=== PATIENT | male | born 1960 | race Two or more races ===

== ENCOUNTER 2024-11-09 04:55 | Emergency (ER) | payer MEDICAID, SELFPAY ==
--- NOTE | 2024-11-09 | XR_ITS ---
MRI abdomen, without contrast. MRCP Date and time of exam: November 09, 2024 0948 hours INDICATIONS: Worsening right upper abdomen epigastric pain nausea vomiting this week, gallbladder sonogram this a.m. cholelithiasis, thickened gallbladder wall Technique: Multiple axial and coronal images of the abdomen have been obtained with the Siemens 1.5T MRI scanner. Images obtained included T1 weighted transverse images, T2-weighted transverse images, T2-weighted transverse images fat-suppressed, T2 weighted haste fat suppressed transverse images, T1 weighted images, in and out of phase images, T2-weighted coronal images, breath hold, T2 weighted haze coronal images as well as T2 weighted coronal thick slab images, MRCP. Findings: No focal liver lesions Gallstones Gallbladder wall is mildly thickened 4 mm Common hepatic duct 6 mm common bile duct 4 mm no common hepatic or common bile duct stones Negative for pancreatitis Spleen is not enlarged No hydronephrosis No ascites Aorta normal size IMPRESSION: Cholelithiasis Borderline thickening gallbladder wall, clinical correlation advised, consider HIDA scan follow-up No common hepatic or common bile duct stones
[2024-11-09 04:57] VITALS: BMI 31.7
[2024-11-09 05:14] VITALS: BP 147/86; PULSE 78; RESP 17; TEMP 37.1; O2SAT 98
--- NOTE | 2024-11-09 05:27 | XR_ITS ---
Examination: Abdomen sonogram, Limited Date and time of exam: November 09, 2024 at 0537 hours INDICATIONS: Worsening abdominal pain beginning yesterday Technique: Real-time laird scale transabdominal sonographic images of the upper abdomen obtained. Findings: Cholelithiasis Gallbladder wall 0.49 cm Common bile duct 0.5 cm Pancreatic and 3.1 cm Liver 16.1 cm fatty infiltration no focal liver lesions Normal hepatopedal portal venous flow Patent IVC IMPRESSION: Cholelithiasis, cholecystitis, consider HIDA scan or MRCP follow-up
--- NOTE | 2024-11-09 05:27 | XR_ITS ---
Examination: PA chest single view TECHNIQUE: Upright PA chest single view Date and time :November 09, 2024 0558 hours INDICATIONS: Chest pain shortness of breath 9 2 days ago FINDINGS: Normal heart size. Lungs are clear. The osseous structures are intact IMPRESSION: No active disease.
--- NOTE | 2024-11-09 05:27 | EKG_ITS ---
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
--- NOTE | 2024-11-09 05:28 | PD.EDRME ---
Rapid Medical Screening Exam [facility] Arrival date/time: 11/09/24 04:55 64M with history of DM and HTN presents to ED with 1 week of worsening RUQ/epigastric pain and N/V. Patient went to PCP who did a stool test (pending results) and was given an H.pylori ABX combo (patient is on day 2). No release with those meds. Patient drinks alcohol regularly. Chief Complaint: Abdominal Pain Vital signs: Vital Signs Temperature 98.8 F 11/09/24 05:14 Pulse Rate 78 11/09/24 05:14 Respiratory Rate 17 11/09/24 05:14 Blood Pressure 147/86 H 11/09/24 05:14 Pulse Oximetry (%) 98 11/09/24 05:14 Oxygen Delivery Method Room Air 11/09/24 05:14
[2024-11-09 05:52] LABS: Basophils # (Auto) 0.1 Thou/mm3 (0.0-0.2); Basophils % (Auto) 1 % (0-2.5); Eosinophils # (Auto) 0.1 Thou/mm3 (0.0-0.5); Eosinophils % (Auto) 1 % (0-10); Hematocrit 47.7 % (41.0-53.0); Hemoglobin 16.3 g/dL (13.5-16.0); Immature Granulocytes Auto 0.05 Thou/mm3 (0.00-0.00); Lymphocytes # (Auto) 1.2 Thou/mm3 (1.0-4.8); Lymphocytes % (Auto) 12 % (10-50); Mean Corpuscular HGB Conc 34.2 g/dl (31.0-37.0); Mean Corpuscular Hemoglobin 29.6 pg (25.0-35.0); Mean Corpuscular Volume 87 fL (80-100); Monocytes # (Auto) 0.5 Thou/mm3 (0.0-0.8); Monocytes % (Auto) 5 % (0-12); Neutrophils # (Auto) 8.5 Thou/mm3 (1.8-7.7); Neutrophils % (Auto) 81 % (37-80); Nucleated Red Blood Cell # 0.00 Thou/mm3 (0.00-0.00); Nucleated Red Blood Cell % 0 /100 WBC (0); Platelet Count 274 Thou/mm3 (140-440); RDW Standard Deviation 37.8 fL (35.1-43.9); Red Blood Count 5.50 Miln/mm3 (4.50-5.90); White Blood Count 10.4 Thou/mm3 (3.8-10.6)
[2024-11-09 06:14] LABS: Alanine Aminotransferase 51 U/L (10-49); Albumin, Serum 5.1 gm/dL (3.4-4.8); Albumin/Globulin Ratio 1.8 (1.2-2.2); Alcohol, Blood Medical < 3.0 mg/dL (0-10.0); Alkaline Phosphatase 61 U/L (46-116); Anion Gap 12 (7-16); Aspartate Amino Transferase 32 U/L (0-34); BUN/Creatinine Ratio 14 Ratio (12-20); Bilirubin,Total 0.7 mg/dL (0.3-1.2); Blood Urea Nitrogen 17 mg/dL (9-23); Calcium 10.0 mg/dL (8.3-10.6); Calcium (Corrected) 10.0 mg/dL (8.5-10.1); Carbon Dioxide 23.6 mMol/L (20.0-31.0); Chloride 102 mMol/L (98-107); Creatinine (Component) 1.2 mg/dL (0.6-1.3); Estimated Creatinine Clearance 61.6 mL/min (>60); Globulin 2.8 gm/dL (2.3-3.5); Glucose 237 mg/dL (74-106); Lipase 67 U/L (12-53); Osmolality,Calculated 285 (275-295); Potassium 4.2 mMol/L (3.4-5.1); Sodium 138 mMol/L (136-145); Total Protein 7.9 gm/dL (5.7-8.2); Troponin I < 0.002 ng/mL (0.0-0.045); eGFR > 60 See Note
--- NOTE | 2024-11-09 06:52 | PRELIM_ITS ---
Ultrasound Abdomen. November 09, 2024 0537 hours Clinical history: RUQ/epigastric pain Technique: Grayscale and color flow images of the abdomen are provided. Hepatic and portal veins were also imaged with color flow images. No prior study is available for comparison. Findings: The liver is hyperechoic with heterogeneous echo texture. No intrahepatic biliary ductal dilatation. Debris and stones are seen within the gallbladder. Gallbladder wall thickening up to 4.9 mm. The common bile duct is normal in caliber at 5 mm. The pancreas is unremarkable to the extent visualized. The inferior vena cava to the extent visualized is within normal limits. Impression: Cholelithiasis with evidence of acute cholecystitis. Suggest follow-up with HIDA scan, if clinically indicated. Other findings as described above. Report Electronically Signed By: Mile El 11/09/2024 6:50:22 AM [EST]
[2024-11-09 07:22] VITALS: BP 146/88; PULSE 71; RESP 18; TEMP 36.9; O2SAT 98
--- NOTE | 2024-11-09 07:33 | PD.EDABDPN ---
ED Abdominal Pain RME/HPI General Chief Complaint: Abdominal Pain Stated complaint: ABD PAIN Time seen by provider: 11/09/24 07:17 Arrival date/time: 11/09/24 04:55 Limitations: no limitations RME / HPI RME / HPI narrative: 11/09/24 04:55 64M with history of DM and HTN presents to ED with 1 week of worsening RUQ/epigastric pain and N/V. Patient went to PCP who did a stool test (pending results) and was given an H.pylori ABX combo (patient is on day 2). No release with those meds. Patient drinks alcohol regularly. DR. DEVINE MAIN ED EVALUATION: 64 year old male presents to the ED for evaluation of abdominal pain today. Reports his pain began intermittently 1 month ago rated as mild in severity. Consulted with his PCP 1 week ago, diagnosed with H. Pylori and started on antibiotic treatment. States he began medications yesterday and at 02:00 AM today the pain became severe. Located to epigastric region without radiation. Accompanied by nausea and vomiting. No other associated symptoms reported. Denies fevers, chills, chest pain, shortness of breath, change in bowel habits, or urinary symptoms. Patient admits to drinking alcohol and last drank 6 beers 5 days ago. Related Data Home Medications ?Medication ?Instructions ?Recorded ?Confirmed amlodipine 10 mg tablet 10 mg PO QDAY 07/13/18 04/22/22 fenofibrate 160 mg tablet 135 mg PO QDAY 07/13/18 04/22/22 empagliflozin 10 mg tablet 10 mg PO QDAY 04/22/22 04/22/22 (Jardiance) glipizide 5 mg tablet 5 mg PO QDAY 04/22/22 04/22/22 lisinopril 20 1 tab PO QDAY 04/22/22 04/22/22 mg-hydrochlorothiazide 25 mg tablet sitagliptin phos 100 mg-metformin 1 tab PO QPM 04/22/22 04/22/22 ER 1,000 mg tablet,extend rel 24h mp (Janumet XR) Previous Rx's ?Medication ?Instructions ?Recorded ibuprofen 800 mg tablet 800 mg PO TID PRN pain #30 tabs 07/13/18 meloxicam 7.5 mg tablet 7.5 mg PO QDAY #10 tabs 09/19/23 famotidine 20 mg tablet (Pepcid) 20 mg PO BID allergic reaction #20 11/09/24 tabs ondansetron HCl 4 mg tablet 4 mg PO Q6H PRN nausea and 11/09/24 vomiting #14 tabs Allergies Allergy/AdvReac Type Severity Reaction Status Date / Time No Known Allergies Allergy Verified 04/22/22 16:30 Review of Systems Review of Systems Systems Reviewed: All systems reviewed, normal except as documented Past Medical History Past Medical History CARDIAC: Positive Hypertension ENDOCRINE: Positive Diabetes Mellitus Type 2 Social History SMOKING STATUS: Never smoker ED Exam General Limitations: Present no limitations General appearance: Present alert and in no apparent distress Head Head exam: Present atraumatic, normocephalic and normal inspection Eye Eye exam: Present normal appearance, PERRL and EOMI ENT ENT exam: Present normal exam, normal oropharynx and mucous membranes moist Neck Neck exam: Present normal inspection, full ROM and trachea midline Chest Chest inspection: Present normal inspection and symmetric chest wall rise Respiratory Respiratory exam: Present normal lung sounds bilaterally Cardiovascular Cardiovascular exam: Present regular rate, normal rhythm and normal heart sounds Abdominal Exam Abdominal exam: Present soft, tenderness (1-2+ epigastric tenderness ) and normal bowel sounds; Absent distention, guarding or rebound Extremities Exam Extremities exam: Present normal inspection and full ROM Back Exam Back exam: Present normal inspection and full ROM Neurological Exam Neurological exam: Present alert, oriented X3 and CN II-XII intact Psychiatric Psychiatric exam: Present normal affect and normal mood Skin Skin exam: Present warm, dry, intact and normal color Course Quality Measures none Orders Category Date Time Status Nail Polish Brush Machine Feeder STAT Care 11/09/24 07:50 Active Continuous Pulse Oximetry STAT Care 11/09/24 07:50 Completed EKG (ED ONLY) *Do not use* NOW Care 11/09/24 05:27 Completed Insert IV NOW Care 11/09/24 05:27 Active Insert IV STAT Care 11/09/24 07:50 Active MRI Screening NOW Care 11/09/24 07:57 Active NPO STAT Care 11/09/24 07:50 Active EKG (ED Only) Stat Exams 11/09/24 05:27 Ordered MR MRCP Stat Exams 11/09/24 Completed US gall bladder Stat Exams 11/09/24 05:27 Completed XR chest 1V portable Stat Exams 11/09/24 05:27 Completed Alcohol, Blood Medical Stat Lab 11/09/24 05:35 Completed CBC Stat Lab 11/09/24 05:35 Completed CBC Stat Lab 11/09/24 08:43 Completed Comprehensive Metabolic Panel Stat Lab 11/09/24 05:35 Completed Lipase Stat Lab 11/09/24 05:35 Completed Magnesium Stat Lab 11/09/24 08:43 Completed Prothrombin Time with INR Stat Lab 11/09/24 08:43 Completed Troponin I Stat Lab 11/09/24 05:35 Completed Urinalysis Stat Lab 11/09/24 08:30 Completed Famotidine Inj [Pepcid Inj] Med 11/09/24 07:50 Discontinued 20 mg IVP X1 ONE Morphine Inj Med 11/09/24 05:27 Discontinued 5 mg IVP X1 ONE Ondansetron Inj [Zofran Inj] Med 11/09/24 05:27 Discontinued 4 mg IVP X1 ONE Pantoprazole Inj [Protonix Inj] Med 11/09/24 05:27 Discontinued 40 mg IVP X1 ONE Sodium Chloride 0.9% 1000 ml [Ns] 1,000 ml Med 11/09/24 07:50 Discontinued IV 999 mls/hr Vital Signs Vital signs: Vital Signs Temperature 98.8 F 11/09/24 05:14 Pulse Rate 78 11/09/24 05:14 Respiratory Rate 17 11/09/24 05:14 Blood Pressure 147/86 H 11/09/24 05:14 Pulse Oximetry (%) 98 11/09/24 05:14 Oxygen Delivery Method Room Air 11/09/24 05:14 Pulse ox is 98% on room air which is adequate. Abdominal Pain MDM MDM Narrative MDM Narrative:: Holly Hand am scribing for and in the presence of Dr. Devine. We reviewed all the results, analysis, and treatment plans. Patient is amenable to discharge. Strict return precautions were outlined. Patient was discharged in stable condition. Patient data External records reviewed:: [facility] previous records (I reviewed ED visit on 09/19/2023 ) Clinical information provided by:: patient Social determinants that could affect healthcare access:: alcohol use Patient has the following chronic illnesses:: HTN, DM Recently dx with H. Pylori How is presenting disease/condition affected by chronic disease/condition?: exacerbated by Evaluation data The following diagnostics were reviewed and interpreted by me:: lab results, radiology exam(s) and EKG tracing(s) (11/09/2024 @ 05:27 AM. Sinus rhythm, rate 66, no acute ischemic changes, no STEMI. ) Lab and/or radiology exams considered but not ordered:: None Interpretation Summary: Ordering Physician: Daniel Luo PA-C Date of Service: 11/09/24 Procedure(s): US gall bladder Accession Number(s): [id number] cc: Ed Tolbert PA-C; Kang Mcdonald MD; Daniel Luo PA-C~ Examination: Abdomen sonogram, Limited Date and time of exam: November 09, 2024 at 0537 hours INDICATIONS: Worsening abdominal pain beginning yesterday Technique: Real-time laird scale transabdominal sonographic images of the upper abdomen obtained. Findings: Cholelithiasis Gallbladder wall 0.49 cm Common bile duct 0.5 cm Pancreatic and 3.1 cm Liver 16.1 cm fatty infiltration no focal liver lesions Normal hepatopedal portal venous flow Patent IVC IMPRESSION: Cholelithiasis, cholecystitis, consider HIDA scan or MRCP follow-up Dictated By: Kang Mcdonald MD Signed By: <Electronically signed by Kang Mcdonald MD in OV>11/09/24 0729 Ordering Physician: Daniel Luo PA-C Date of Service: 11/09/24 Procedure(s): XR chest 1V portable Accession Number(s): [id number] cc: Ed Tolbert PA-C; Kang Mcdonald MD; Daniel Luo PA-C~ Examination: PA chest single view TECHNIQUE: Upright PA chest single view Date and time :November 09, 2024 0558 hours INDICATIONS: Chest pain shortness of breath 9 2 days ago FINDINGS: Normal heart size. Lungs are clear. The osseous structures are intact IMPRESSION: No active disease. Dictated By: Kang Mcdonald MD Signed By: <Electronically signed by Kang Mcdonald MD in OV> 11/09/24 0746 Ordering Physician: Dejan Devine MD Date of Service: 11/09/24 Procedure(s): MR MRCP Accession Number(s): [id number] cc: Dejan Devine MD; Ed Tolbert PA-C; Kang Mcdonald MD~ MRI abdomen, without contrast. MRCP Date and time of exam: November 09, 2024 0948 hours INDICATIONS: Worsening right upper abdomen epigastric pain nausea vomiting this week, gallbladder sonogram this a.m. cholelithiasis, thickened gallbladder wall Technique: Multiple axial and coronal images of the abdomen have been obtained with the Siemens 1.5T MRI scanner. Images obtained included T1 weighted transverse images, T2-weighted transverse images, T2-weighted transverse images fat-suppressed, T2 weighted haste fat suppressed transverse images, T1 weighted images, in and out of phase images, T2-weighted coronal images, breath hold, T2 weighted haze coronal images as well as T2 weighted coronal thick slab images, MRCP. Findings: No focal liver lesions Gallstones Gallbladder wall is mildly thickened 4 mm Common hepatic duct 6 mm common bile duct 4 mm no common hepatic or common bile duct stones Negative for pancreatitis Spleen is not enlarged No hydronephrosis No ascites Aorta normal size IMPRESSION: Cholelithiasis Borderline thickening gallbladder wall, clinical correlation advised, consider HIDA scan follow-up No common hepatic or common bile duct stones Dictated By: Kang Mcdonald MD Signed By: <Electronically signed by Kang Mcdonald MD in OV> 11/09/24 1039 Medications / Prescriptions Medications or Prescriptions considered but not ordered:: None Medication administrations:: Medication Administration History Discontinued Medications Famotidine (Famotidine Inj 10 Mg/Ml Vial 2 Ml) 20 mg IVP X1 ONE Stop: 11/09/24 07:51 Last Admin: 11/09/24 08:10 Dose: 20 mg Documented By: CECY Sodium Chloride (Ns) 1,000 mls @ 999 mls/hr IV .Q1H1M ONE Stop: 11/09/24 08:50 Last Infusion: 11/09/24 09:15 Dose: Infused Documented By: Admin: 11/09/24 08:10 Dose: 999 mls/hr Documented By: CECY Morphine Sulfate (Morphine Sulf Inj 10 Mg/Ml Vial) 5 mg IVP X1 ONE Stop: 11/09/24 05:28 Last Admin: 11/09/24 07:57 Dose: 5 mg Documented By: RAMANA Ondansetron HCl (Ondansetron Inj 2 Mg/Ml Inj 2 Ml) 4 mg IVP X1 ONE; Protocol Stop: 11/09/24 05:28 Last Admin: 11/09/24 07:57 Dose: 4 mg Documented By: RAMANA Pantoprazole Sodium (Pantoprazole Inj 40 Mg Vial) 40 mg IVP X1 ONE Stop: 11/09/24 05:28 Last Admin: 11/09/24 07:55 Dose: 40 mg Documented By: RAMANA See above Consultations Consultation(s) initiated? (list below): Yes Consultation #1 (Physician, Specialty, Details): I spoke with surgeon Dr. Gracia. Discussed patients PMHx, HPI, ED course, exam findings, labs, and radiology results. States patient can be discharged home and follow up with her on an outpatient basis. Diagnosis Differential diagnosis abdominal pain: abdominal pain, gastroenteritis, pancreatitis and other (H. Pylori, gastritis ) Most likely diagnosis given after review of the tests above:: Abdominal pain Cholelithiasis Medication reaction Admission Indicated Admission indicated?: not indicated Admission Request Was there a request for admission?: No Disposition Plan Disposition Plan: Discharge Discharge Attestation Discharge Attestation: The patient and all family members were given an opportunity to ask questions and understood the discharge instructions. Discharge instructions specifically effects, indications for sooner follow up or return to the emergency department, and the expected course of current diagnosis. Patient condition: Stable Discharge Plan Plan Patient Disposition: HOME (Self Care) Prescriptions/Referrals Prescriptions/Med Rec: New ondansetron HCl 4 mg tablet 4 mg PO Q6H MDD 4 PRN (Reason: nausea and vomiting) Qty: 14 0RF famotidine [Pepcid] 20 mg tablet 20 mg PO BID MDD 2 Qty: 20 0RF No Action amlodipine 10 mg Tablet 10 mg PO QDAY fenofibrate 160 mg Tablet 135 mg PO QDAY ibuprofen 800 mg tablet 800 mg PO TID PRN (Reason: pain) Qty: 30 0RF meloxicam 7.5 mg tablet 7.5 mg PO QDAY Qty: 10 0RF lisinopril-hydrochlorothiazide 20-25 mg Tablet 1 tab PO QDAY glipizide 5 mg Tablet 5 mg PO QDAY Janumet XR 100-1,000 mg Tablet, Er Multiphase 24 Hr 1 tab PO QPM Jardiance 10 mg Tablet 10 mg PO QDAY Referrals: Amanda Gracia MD [Physician] - In 1 week Ed Tolbert PA-C [Primary Care Provider] - In 1 week Problem List Clinical Impression: Cholelithiasis, Abdominal pain, Medication reaction Patient/Caregiver Discharge Instructions Education Materials: Abdominal Pain, ED Drug Reaction, Other, ED Gallstones with Biliary Colic Additional Instructions: Follow-up with your primary care doctor in 1-2 days for referral to see surgeon Dr. Gracia. You can return to the emergency department sooner if symptoms worsen or if you notice any new, concerning issues. Print Language: Martiniquais Stand Alone Forms: Deepa Award Info., Patient Portal Info Letter
--- NOTE | 2024-11-09 07:42 | PC.NURSE ---
PATIENT MOVED TO ROOM 1 AT CHANGE OF SHIFT FROM LOBBY. PATIENT WITH COMPLAINT OF EPIGASTRIC PAIN FOR 5 DAYS WORSE TODAY. PATIENT RATES PAIN 6/10. PATIENT STATES HE WENT TO PRIMARY CARE PROVIDER AND WAS GIVEN MEDICATION WITH NO RELIEF. IV ESTABLISHED. CALL LIGHT WITHIN REACH. WILL CONTINUE TO MONITOR.
--- NOTE | 2024-11-09 07:48 | PC.NURSE ---
MEDICATIONS ORDERED BY RME PROVIDER. NOT ADMINISTERED DUE TO PATIENT BEING IN LOBBY.
[2024-11-09] MEDS: ONDANSETRON INJ 2 MG/ML INJ 2 ML 4 MG IVP (07:57)
[2024-11-09] MEDS: MORPHINE SULF INJ 10 MG/ML VIAL 5 MG IVP (07:57)
[2024-11-09] MEDS: FAMOTIDINE INJ 10 MG/ML VIAL 2 ML 20 MG IVP (08:10)
[2024-11-09] MEDS: SODIUM CHLORIDE 0.9% 1000 ML 1,000 ML 999 ML IV (08:10)
[2024-11-09 08:11] VITALS: PULSE 64
[2024-11-09 08:48] LABS: Collection Type, Urine Clean Catch; Squamous Epithelial Cell,Urine 0 /hpf (0-5)
[2024-11-09 08:50] LABS: Basophils # (Auto) 0.0 Thou/mm3 (0.0-0.2); Basophils % (Auto) 0 % (0-2.5); Eosinophils # (Auto) 0.0 Thou/mm3 (0.0-0.5); Eosinophils % (Auto) 0 % (0-10); Hematocrit 44.4 % (41.0-53.0); Hemoglobin 15.4 g/dL (13.5-16.0); Immature Granulocytes Auto 0.04 Thou/mm3 (0.00-0.00); Lymphocytes # (Auto) 0.7 Thou/mm3 (1.0-4.8); Lymphocytes % (Auto) 6 % (10-50); Mean Corpuscular HGB Conc 34.7 g/dl (31.0-37.0); Mean Corpuscular Hemoglobin 30.0 pg (25.0-35.0); Mean Corpuscular Volume 86 fL (80-100); Monocytes # (Auto) 0.5 Thou/mm3 (0.0-0.8); Monocytes % (Auto) 3 % (0-12); Neutrophils # (Auto) 12.2 Thou/mm3 (1.8-7.7); Neutrophils % (Auto) 91 % (37-80); Nucleated Red Blood Cell # 0.00 Thou/mm3 (0.00-0.00); Nucleated Red Blood Cell % 0 /100 WBC (0); Platelet Count 234 Thou/mm3 (140-440); RDW Standard Deviation 37.6 fL (35.1-43.9); Red Blood Count 5.14 Miln/mm3 (4.50-5.90); White Blood Count 13.5 Thou/mm3 (3.8-10.6)
[2024-11-09 09:01] LABS: Bilirubin,Urine Negative (Negative); Blood,Urine Negative (Negative); Clarity,Urine Clear (Clear/Hazy); Color,Urine Lt-Yellow (Lt Yel-Yel); Glucose, Urine 4+ (Negative); Ketones,Urine Negative (Negative); Leukocyte Esterase,Urine Negative (Negative); Nitrite,Urine Negative (Negative); PH,Urine 7.5 (5.0-7.0); Protein,Urine Negative (Neg - Trace); RBC,Urine < 1 /hpf (0-3); Specific Gravity,Urine 1.025 (1.001-1.035); Urobilinogen,Urine Negative mg/dL (0.0-1.0); WBC,Urine < 1 /hpf (0-5)
[2024-11-09 09:10] LABS: INR 1.0 (0.9-1.3); Prothrombin Time 11.0 Seconds (9.0-12.2)
[2024-11-09 09:12] LABS: Magnesium 1.7 mg/dL (1.6-2.6)
[2024-11-09 11:03] VITALS: BP 134/81; PULSE 75; RESP 18; TEMP 37.2; O2SAT 95
[2024-11-09 11:52] VITALS: BP 137/88; PULSE 72; RESP 20; O2SAT 97
== END 2024-11-09 11:52 | disposition home or self-care (01) ==
PROVIDERS: Physician Assistant; Emergency Provider Family Medicine; PCP Physician Assistant
DX: K80.10 Calculus of gallbladder with chronic cholecystitis without obstruction (principal); T36.95XA Adverse effect of unspecified systemic antibiotic, initial encounter; R10.13 Epigastric pain; R07.9 Chest pain, unspecified; R06.02 Shortness of breath; I10 Essential (primary) hypertension
CPT/HCPCS: 36415; 71045; 74181; 76705; 80053; 80320; 81001; 83690; 83735; 84484; 85025; 85610; 93005; 96361; 96374; 96375; 99284; J2270; J2405; J2470; J3490; J7030; G0480

== ENCOUNTER 2024-11-19 14:49 | Outpatient (AMB) | payer MEDICAID, SELFPAY ==
--- NOTE | 2024-11-19 14:55 | GSCOFFNT_ITS ---
Vital Signs - [facility] 11/19/24 15:01 Height 1.63 m Height Method Stated Weight 83.036 kg Weight Measurement Method Standing Scale BMI 31.4 BP 115/68 Blood Pressure Source Automatic Cuff Blood Pressure Location Left Upper Arm Position Sitting Respiration 18 Pulse 66 Pulse Source Monitor Temp 98.3 F Temp Source Temporal Artery Scan Pulse Oximetry (%) 94 L Oxygen Delivery Method Room Air Med/Allergies Allergies & Medications Allergies No Known Allergies Allergy (Verified 11/19/24 15:02) Medication Reconciliation amlodipine 10 mg tablet 10 mg PO QDAY 07/13/18 [History Confirmed 11/19/24] fenofibrate 160 mg tablet 135 mg PO QDAY 07/13/18 [History Confirmed 11/19/24] ibuprofen 800 mg tablet 800 mg PO TID PRN pain #30 tabs 07/13/18 [Rx Confirmed 11/19/24] empagliflozin 10 mg tablet (Jardiance) 10 mg PO QDAY 04/22/22 [History Confirmed 11/19/24] glipizide 5 mg tablet 5 mg PO QDAY 04/22/22 [History Confirmed 11/19/24] lisinopril 20 mg-hydrochlorothiazide 25 mg tablet 1 tab PO QDAY 04/22/22 [History Confirmed 11/19/24] sitagliptin phos 100 mg-metformin ER 1,000 mg tablet,extend rel 24h mp (Janumet XR) 1 tab PO QPM 04/22/22 [History Confirmed 11/19/24] meloxicam 7.5 mg tablet 7.5 mg PO QDAY #10 tabs 09/19/23 [Rx Confirmed 11/19/24] famotidine 20 mg tablet (Pepcid) 20 mg PO BID allergic reaction #20 tabs 11/09/24 [Rx Confirmed 11/19/24] hydrocodone 5 mg-acetaminophen 325 mg tablet 1 tab PO Q6H PRN pain #20 tabs 11/09/24 [Rx Confirmed 11/19/24] ondansetron HCl 4 mg tablet 4 mg PO Q6H PRN nausea and vomiting #14 tabs 11/09/24 [Rx Confirmed 11/19/24] MA Intake Visit Data Collection New Patient or Established: New Patient (never been to [facility]) Seen by Clinical Staff ONLY (RN/BRITTNEY): No Reason for Visit:: REFERRAL GALLSTONES Pain Present Currently: Yes Pain Location: Abdomen Pain scale:: 6 Pain Scale Used: Cochran-Mcdonough/Numerical Unarmed Security Guard Required: Yes PCP or OBGYN visit in last 3 months: Yes Hx Now: No Do You Feel Safe at Home: Yes Authorities Contacted: N/A Smoking Status Smoking Status: Never smoker Immunization / Flu Flu Vaccine in the Last 12 Months: No Flu Vaccine Exclusion Criteria: Refused by Patient Past Medical History Past Medical History NEUROLOGIC: Negative Seizures CARDIAC: Positive Hypertension; Negative Congestive Heart Failure RESPIRATORY: Negative Chronic Obstructive Pulmonary Disease (COPD) GENITOURINARY: Negative Renal Disease ENDOCRINE: Positive Diabetes Mellitus Type 2; Negative Diabetes Mellitus Type 1 OTHER HISTORY: Negative Blood Transfusions, Blood Transfusion Reaction or Anesthesia Reactions Social History SMOKING STATUS: Smoking status: Never smoker ALCOHOL: Alcohol Intake: Current HOUSING: Housing: House HPI HPI Narrative Spoke to pt with in-person service desk agent 64M referred for symptomatic cholelithiasis. Pt states he has noticed pain to the abdomen for the past month, it is constant but even worse after eating or drinking. The pain goes across the upper abdomen including the left and right sides as well as the epigastrium. He states that he also has nausea and his notices he gets warm with the pain, but unsure if he has had an actual fever and denies diarrhea. Pt is taking norco as needed for severe pain which helps. He went to the ER 8/1 with US and MRCP showing cholelithiasis with borderline wall thickening PMH: HTN, DMII, was on day 2 of H pylori treatment when he went to ER 8/1 PShx: Left TKR Meds: No anitplt or anticoagulation Allergies: NKDA ROS Review of Systems Systems Reviewed: All systems reviewed, normal except as documented Objective/Exam General General Appearance: alert, cooperative and well groomed Resp Respiratory exam: Absent respiratory distress Abdominal Abdominal exam: Present soft and tenderness (mild RUQ tenderness); Absent distention or Preston's sign Results US, MRCP, lab results reviewed Assessment & Plan Diagnosis / Problem List (1) Symptomatic cholelithiasis: Status: Acute Assessment & Plan: 64M presenting with signs and symptoms of symptomatic cholelithiasis. I explained benefits/risks of surgery including need for conversion to open, bleeding, infection, injury to nearby structures requiring further procedures or biliary reconstruction at a tertiary hospital, as well as postoperative hernia and diarrhea. All questions were answered and pt is agreeable to proceeding Office Procedures GNS Level of Care Nursing/Assessment Patient Status: Initial/New Patient Nursing Assessment/Reassesment: Medication Reconciliation, Update PMH in EMR and Vital Signs Coordination of Care: Complex Care and Chronic Disease 1-5, Consent,records obtained, informed consent, Education Simp Pt/Fam, Results/Orders obtained and Staff clarify orders Special Needs: Language special needs New Patient Charge New Patient Point Assignment: [id number] New Patient Point Charge: INSPECTOR CRYSTAL Level 3 ([id number]) Patient Portal Questionaires Social History Living Situation History Housing: House Tobacco History Smoking Status: Never smoker Alcohol History Alcohol Intake: Current Domestic Abuse History Do You Feel Safe at Home: Yes Review of Systems Report any current symptoms Only answer those that you have currently: Past Medical History Past Medical History Have you ever been diagnosed with any of the following: Neurological Problems Seizures: No Cardiology Problems Congestive Heart Failure: No Hypertension: Yes Respiratory Problems Chronic Obstructive Pulmonary Disease (COPD): No Genital/Urinary Problems Renal Disease: No Endocrine Problems Diabetes Mellitus Type 1: No Diabetes Mellitus Type 2: Yes Other Problems Blood Transfusions: No Blood Transfusion Reaction: No Anesthesia Reactions: No
[2024-11-19 15:01] VITALS: BP 115/68; PULSE 66; RESP 18; TEMP 36.8; O2SAT 94; BMI 31.4
== END 2024-11-19 15:39 | disposition home or self-care (01) ==
LOC: HODSRG 14:49
PROVIDERS: PCP Physician Assistant; Referring Provider Physician Assistant; Supervising Provider Surgery; Visit Provider Surgery
DX: K80.20 Calculus of gallbladder without cholecystitis without obstruction (principal); I10 Essential (primary) hypertension; E11.9 Type 2 diabetes mellitus without complications
CPT/HCPCS: 99203; G0463

== ENCOUNTER 2024-11-26 10:55 | Day surgery (SDC) | payer MEDICAID, SELFPAY ==
[2024-11-23 10:52] VITALS: BMI 32.5
[2024-11-23 12:10] LABS: Basophils # (Auto) 0.1 Thou/mm3 (0.0-0.2); Basophils % (Auto) 1 % (0-2.5); Eosinophils # (Auto) 0.2 Thou/mm3 (0.0-0.5); Eosinophils % (Auto) 3 % (0-10); Hematocrit 46.2 % (41.0-53.0); Hemoglobin 16.1 g/dL (13.5-16.0); Immature Granulocytes Auto 0.04 Thou/mm3 (0.00-0.00); Lymphocytes # (Auto) 1.8 Thou/mm3 (1.0-4.8); Lymphocytes % (Auto) 23 % (10-50); Mean Corpuscular HGB Conc 34.8 g/dl (31.0-37.0); Mean Corpuscular Hemoglobin 30.0 pg (25.0-35.0); Mean Corpuscular Volume 86 fL (80-100); Monocytes # (Auto) 0.6 Thou/mm3 (0.0-0.8); Monocytes % (Auto) 7 % (0-12); Neutrophils # (Auto) 5.3 Thou/mm3 (1.8-7.7); Neutrophils % (Auto) 66 % (37-80); Nucleated Red Blood Cell # 0.00 Thou/mm3 (0.00-0.00); Nucleated Red Blood Cell % 0 /100 WBC (0); Platelet Count 317 Thou/mm3 (140-440); RDW Standard Deviation 37.5 fL (35.1-43.9); Red Blood Count 5.36 Miln/mm3 (4.50-5.90); White Blood Count 8.0 Thou/mm3 (3.8-10.6)
[2024-11-23 12:29] LABS: Alanine Aminotransferase 43 U/L (10-49); Albumin, Serum 4.9 gm/dL (3.4-4.8); Albumin/Globulin Ratio 2.0 (1.2-2.2); Alkaline Phosphatase 73 U/L (46-116); Anion Gap 12 (7-16); Aspartate Amino Transferase 31 U/L (0-34); BUN/Creatinine Ratio 14 Ratio (12-20); Bilirubin,Total 0.4 mg/dL (0.3-1.2); Blood Urea Nitrogen 17 mg/dL (9-23); Calcium 10.2 mg/dL (8.3-10.6); Calcium (Corrected) 10.2 mg/dL (8.5-10.1); Carbon Dioxide 23.3 mMol/L (20.0-31.0); Chloride 103 mMol/L (98-107); Creatinine (Component) 1.2 mg/dL (0.6-1.3); Estimated Creatinine Clearance 60.2 mL/min (>60); Globulin 2.4 gm/dL (2.3-3.5); Glucose 147 mg/dL (74-106); Osmolality,Calculated 280 (275-295); Potassium 4.1 mMol/L (3.4-5.1); Sodium 138 mMol/L (136-145); Total Protein 7.3 gm/dL (5.7-8.2); eGFR > 60 See Note
[2024-11-23 12:53] LABS: INR 0.9 (0.9-1.3); Partial Thromboplastin Time 23.7 Seconds (22.0-36.0); Prothrombin Time 10.1 Seconds (9.0-12.2)
[2024-11-26] VITALS (12 sets, daily range): BP systolic 121–164; BP diastolic 62–91; PULSE 62–80; RESP 16–20; TEMP 36.3–36.6; O2SAT 92–96; BMI 31.8
--- NOTE | 2024-11-26 14:39 | PD.SUROPNT ---
Date of Procedure 11/26/24 Pre Op Diagnosis Symptomatic cholelithiasis Post Op Diagnosis Same Procedure Laparoscopic cholecystectomy Findings Gallbladder with stones Procedure Description After discussion of risks and benefits, patient was brought to the operating room, SCDs were placed and general anesthesia was induced. She was prepped and draped in the usual sterile fashion and received preoperative antibiotics. After timeout a supraumbilical incision was made with #11 blade and the skin was elevated with towel clamps. A Veress needle was placed through the incision and proper positioning was confirmed with a drop test at which point the abdomen was insufflated to 15 mmHg. At that point the Veress needle was exchanged for a 5 mm camera using a Visiport technique. There were no signs of injury from the point of entry. 3 additional ports were placed under direct vision, one 12 mm at the epigastrium, one 5 mm right subcostal and one 5 mm right anterior axillary line. Patient was placed in reverse Trendelenburg. The fundus of the gallbladder was grasped retracted cephalad and the infundibulum was grasped retracted laterally. The critical view of safety was achieved with blunt dissection and the cystic duct and cystic artery were clipped and transected in the usual fashion. The gallbladder was removed from the gallbladder bed using electrocautery. The gallbladder bed was irrigated and hemostasis was achieved with electrocautery and reinforced with Surgicel powder. The specimen was removed in an Endo Catch bag via the epigastric port and the epigastric fascia was closed with a 0 Vicryl suture using a Tato-Dre. Pneumoperitoneum was released and ports were removed under direct vision. Incisions were irrigated and infiltrated with half percent Marcaine for a total of 24 cc. Incisions were closed with 4 Monocryl and reinforced with Dermabond. Patient was extubated and brought to PACU in stable condition Pathology / specimen Other (Gallbladder) Estimated Blood Loss 50 Surgeon Amanda Gracia MD Surgical Staff Operation Date: 11/26/24 13:15 <No data on this case meets the specified criteria>
--- NOTE | 2024-11-26 14:41 | SUR.PHASEI ---
pt received from OR in recovery bay 1. pt asleep but responds to voice, breathing unlabored on nc4l. v/s stable. pt dressing to abd dermabond x4 cdi. report received from Dr. To and Phong ESCOBAR.
--- NOTE | 2024-11-26 14:41 | PD.SURDS ---
Planned Discharge Date 11/26/24 DS: Providers Provider Primary care physician: Ed Tolbert PA-C Attending Provider on Admission: Amanda Gracia MD Attending Provider on DC: Amanda Gracia MD Discharging Provider: Amanda Gracia MD Diagnosis Discharge Diagnosis (1) Symptomatic cholelithiasis: Status: Acute Problem List Completed Was Problem List Reviewed/Reconciled?: Yes Exam Vital Signs Temp Pulse Resp BP Pulse Ox 97.4 F 63 18 137/87 H 96 11/26/24 11:27 11/26/24 11:27 11/26/24 11:27 11/26/24 11:27 11/26/24 11:27 Discharge Plan Plan Patient Disposition: HOME (Self Care) Prescriptions/Referrals Prescriptions/Med Rec: New oxycodone-acetaminophen [Percocet] 5-325 mg tablet 1 tab PO Q4HR MDD 6 tabs PRN (Reason: pain) Qty: 10 0RF Rx Instructions: Take 1 tablet every 4-6 hours as needed for moderate to severe pain No Action amlodipine 10 mg Tablet 10 mg PO QDAY hydrocodone-acetaminophen 5-325 mg tablet 1 tab PO Q6H MDD 4 PRN (Reason: pain) Qty: 20 0RF Jardiance 25 mg tablet 25 mg PO QAM lisinopril-hydrochlorothiazide 20-25 mg Tablet 1 tab PO QDAY glipizide 5 mg Tablet 5 mg PO QDAY Janumet XR 100-1,000 mg Tablet, Er Multiphase 24 Hr 1 tab PO QPM Referrals: Amanda Gracia MD [Physician] - (You will receive a phone call to confirm a follow-up appointment with me in 2 weeks) Ed Tolbert PA-C [Primary Care Provider] - Patient/Caregiver Discharge Instructions Other Discharge Activity Instructions:: Avoid lifting objects greater than 10 pounds for 6 weeks You may resume showering in 2 days, on 11/28 It is okay to get your incisions wet in the shower, pat them dry after Avoid bathing or swimming for 2 weeks During the surgery we fill your abdomen with air in order to see the structures. Some of this air may linger and cause pain that is referred to your shoulder as well as pain with deep breaths. This will improve with time. Being out of bed and walking will help the air to absorb faster If you develop worsening pain, nausea/vomiting, fever or jaundice please seek care in ER Education Materials: Cholecystectomy Laparoscopic Dc, Preventing Surgical Site Infections Print Language: Indonesian Stand Alone Forms: Deepa Award Info., Patient Portal Info Letter Discharge Order Discharge Orders: Discharge (Routine); Ordered 11/26/24 Ordered By: Amanda Gracia Results Results: Laboratory Laboratory results: results reviewed Results: Imaging US - abdomen: report reviewed PROCEDURES: Procedures Laparoscopic cholecystectomy
[2024-11-26] MEDS: fentaNYL CIT INJ 50 mCg/ML AMP 2ML IVP ×3 (14:51→16:01)
[2024-11-26] MEDS: MORPHINE SULF INJ 10 MG/ML VIAL 4 MG IVP ×2 (14:56→15:44)
[2024-11-26] MEDS: MIDAZOLAM INJ 1 MG/ML VIAL 2 ML IVP (15:02)
--- NOTE | 2024-11-26 15:47 | SUR.PHASEII ---
pt able to tolerate oral fluids without difficulty swallowing or nausea/vomiting.
--- NOTE | 2024-11-26 16:58 | SUR.PHASEII ---
pt awake and alert, breathing unlabored on room air. v/s stable. pt dressing abd dermabond x4 cdi. pt able to ambulate to wheelchair with steady gait. d/c instructions given with Meghann in room using parts sales representative Rolly Hernandez, all questions answered. pt d/c via wheelchair with all belongings.
== END 2024-11-26 16:58 | disposition home or self-care (01) ==
PROVIDERS: Anesthesiology; PCP Physician Assistant; Referring Provider Surgery; Visit Provider Surgery
PROC: 0FT44ZZ Resection of Gallbladder, Percutaneous Endoscopic Approach (ICD-10-PCS; CPT 47562; principal; 2024-11-26 13:00)
DX: K80.20 Calculus of gallbladder without cholecystitis without obstruction (principal)
CPT/HCPCS: 47562; 36415; 80053; 85025; 85610; 85730; A4217; A4649; J0131; J0694; J1100; J2250; J2270; J2405; J2704; J2710; J3010; J3490; J1805

== ENCOUNTER 2024-12-13 10:54 | Outpatient (AMB) | payer MEDICAID, SELFPAY ==
[2024-12-13 11:29] VITALS: BP 95/61; PULSE 78; RESP 19; TEMP 36.6; O2SAT 92; BMI 31.1
--- NOTE | 2024-12-13 11:29 | PD.GSCLVISIT ---
Vital Signs - [facility] 12/13/24 11:29 Height 1.6 m Height Method Measured Weight 79.634 kg Weight Measurement Method Standing Scale BMI 31.1 BP 95/61 Blood Pressure Source Automatic Cuff Blood Pressure Location Left Upper Arm Position Sitting Respiration 19 Pulse 78 Pulse Source Monitor Temp 97.8 F Temp Source Temporal Artery Scan Pulse Oximetry (%) 92 L Oxygen Delivery Method Room Air Med/Allergies Allergies & Medications Allergies No Known Allergies Allergy (Verified 12/13/24 11:42) Medication Reconciliation amlodipine 10 mg tablet 10 mg PO QDAY 07/13/18 [History Confirmed 12/13/24] glipizide 5 mg tablet 5 mg PO QDAY 04/22/22 [History Confirmed 12/13/24] lisinopril 20 mg-hydrochlorothiazide 25 mg tablet 1 tab PO QDAY 04/22/22 [History Confirmed 12/13/24] sitagliptin phos 100 mg-metformin ER 1,000 mg tablet,extend rel 24h mp (Janumet XR) 1 tab PO QPM 04/22/22 [History Confirmed 12/13/24] hydrocodone 5 mg-acetaminophen 325 mg tablet 1 tab PO Q6H PRN pain #20 tabs 11/09/24 [Rx Confirmed 12/13/24] empagliflozin 25 mg tablet (Jardiance) 25 mg PO QAM 11/23/24 [History Confirmed 12/13/24] oxycodone-acetaminophen 5 mg-325 mg tablet (Percocet) 1 tab PO Q4HR PRN pain #10 tabs 11/26/24 [Rx Confirmed 12/13/24] oxycodone-acetaminophen 5 mg-325 mg tablet (Percocet) 1 tab PO Q4H PRN pain #20 tabs 11/29/24 [Rx Confirmed 12/13/24] MA Intake Visit Data Collection New Patient or Established: Established Patient (seen at [facility] within 3 years) Reason for Visit:: 2 WEEK F/U POST OP Pain Present Currently: Yes Pain scale:: 2 Pain Scale Used: Antoine/Numerical Eyeglass Inspector Required: Yes PCP or OBGYN visit in last 3 months: Yes Hx Now: No Do You Feel Safe at Home: Yes Authorities Contacted: N/A Smoking Status Smoking Status: Never smoker Immunization / Flu Flu Vaccine in the Last 12 Months: Yes Flu Vaccine Exclusion Criteria: Already Received Past Medical History Past Medical History NEUROLOGIC: Negative Neurological Disorders or Seizures CARDIAC: Positive Cardiac Disorders, Hypercholesterolemia and Hypertension; Negative Congestive Heart Failure RESPIRATORY: Negative Chronic Obstructive Pulmonary Disease (COPD) GASTROINTESTINAL: Positive Gastrointestinal Disorders, Gall Bladder Disease and Obesity; Negative Hepatitis GENITOURINARY: Negative Genitourinary Disorders or Renal Disease MUSCULOSKELETAL: Positive Arthritis ENDOCRINE: Positive Endocrine Disorders and Diabetes Mellitus Type 2; Negative Diabetes Mellitus Type 1 HEMATOLOGIC: Negative Blood Disorders OTHER HISTORY: Positive Chicken Pox; Negative Hospitalization, Autoimmune Disease, Shingles, Blood Transfusions, Blood Transfusion Reaction, Anesthesia Reactions or Cancer Family History FAMILY HISTORY: Positive Family Cardiac Disorders and Family Surgery; Negative Family Psychiatric Problems, Family Respiratory Disorders, Family Gastrointestinal Problems, Family Cancer or Family Anesthesia Reaction Social History SMOKING STATUS: Smoking status: Never smoker ALCOHOL: Alcohol Intake: Current HOUSING: Housing: House HPI HPI Narrative 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 Pt reports feeling well overall, he did have pain and difficulty eating at first but his appetite has returned and he is not needing any pain medications currently. Denies any nausea or fever and has had intermittent diarrhea ROS Review of Systems Systems Reviewed: All systems reviewed, normal except as documented Objective/Exam General General Appearance: alert, cooperative and well groomed Resp Respiratory exam: Absent respiratory distress Abdominal Abdominal exam: Present soft and incision (c/d/i, no erythema, no fluctuance or tenderness); Absent distention or tenderness Results Pathology of galbladder reviewed Assessment & Plan Diagnosis / Problem List (1) Symptomatic cholelithiasis: Status: Acute Assessment & Plan: 64M now s/p lap andrea 11/26/24 here for planned follow up, recovering well overall Plan: Follow up as needed Office Procedures GNS Level of Care Nursing/Assessment Patient Status: Established Patient Nursing Assessment/Reassesment: Medication Reconciliation, Update PMH in EMR and Vital Signs Coordination of Care: Complex Care and Chronic Disease 1-5, Consent,records obtained, informed consent, Education Simp Pt/Fam, Results/Orders obtained and Staff clarify orders Established Patient Charge Established Patient Point Assignment: 90 Established Patient Point Charge: EP Level 3 (80-115) Patient Portal Questionaires Social History Living Situation History Housing: House Tobacco History Smoking Status: Never smoker Alcohol History Alcohol Intake: Current Domestic Abuse History Do You Feel Safe at Home: Yes Review of Systems Report any current symptoms Only answer those that you have currently: Past Medical History Past Medical History Have you ever been diagnosed with any of the following: Neurological Problems Seizures: No Cardiology Problems Hypercholesterolemia: Yes Congestive Heart Failure: No Hypertension: Yes Respiratory Problems Chronic Obstructive Pulmonary Disease (COPD): No Stomache/Intestinal Problems Hepatitis: No Gall Bladder Disease: Yes Obesity: Yes Genital/Urinary Problems Renal Disease: No Musculoskeletal Problems Arthritis: Yes Endocrine Problems Diabetes Mellitus Type 1: No Diabetes Mellitus Type 2: Yes Other Problems Hospitalization: No Autoimmune Disease: No Shingles: No Blood Transfusions: No Blood Transfusion Reaction: No Anesthesia Reactions: No Chicken Pox: Yes Cancer: No
== END 2024-12-13 11:39 | disposition home or self-care (01) ==
LOC: HODSRG 10:54
PROVIDERS: PCP Physician Assistant; Referring Provider Physician Assistant; Supervising Provider Surgery; Visit Provider Surgery
DX: Z48.815 Encounter for surgical aftercare following surgery on the digestive system (principal); I10 Essential (primary) hypertension; E78.00 Pure hypercholesterolemia, unspecified; E11.9 Type 2 diabetes mellitus without complications
CPT/HCPCS: 99213; G0463